=== PATIENT | male | born 1950 | race Caucasian/White ===

== ENCOUNTER 2016-07-15 00:24 | Emergency (ER) | payer OTHER ==
[2016-07-15] MEDS ORDERED: METHYLPREDNISOLONE SOD 125 MG/2 ML VIAL ONE (00:44)
[2016-07-15] MEDS ORDERED: IPRATROPIUM/ALBUTEROL 0.5/3 MG 3 ML AMPUL.NEB INHALATION ONE ×3 (00:44→02:23)
--- NOTE | 2016-07-15 00:50 | RADIOLOGY REPORT ---
HISTORY: Shortness of breath. COMPARISON: None. FINDINGS: 1 view of the chest obtained. There is patchy right basilar airspace disease. There is no pleural e ffusion. There is no pneumothorax. The cardiomediastinal silhouette is normal. There is no abnorma lity of the pulmonary vessels. There is no focal lung parenchymal nodule. There is no bone lesion. IMPRESSION: Patchy right basilar airspace disease may be secondary to atelectasis, aspiration or pneumonia. Recom mend a follow-up chest radiograph in 6-8 weeks to document resolution. Final Electronic Signature: This report was electronically signed by Iris Celis MD on 07/15/2016 12:48 AM. benny /
[2016-07-15] MEDS ORDERED: NICOTINE 21 MG PATCH ONE (01:19)
[2016-07-15] MEDS ORDERED: predniSONE 10 MG TABLET PO ONE (01:34)
--- NOTE | 2016-07-15 02:41 | ER PHYSICIAN DOCUMENTATION ---
Physician Documentation [facility] Name:Paresh Proctor Age:65 yrs Sex:Male :1950 Arrival Date:07/15/2016 Time:00:24 BedTrauma-C Private MD: Shola Dorantes Disposition: 07/15 01:18 Critical Care: not applicable. sc Disposition: 07/15/16 01:20 Discharged to Home/Self Care. Impression: COPD Exacerbation. - Condition is Fair. - Discharge Instructions: COPD FLARE. - Prescriptions for Prednisone 20 mg Oral Tablet - take 2 tablet by ORAL route once daily for 5 days; 10 tablet. - Medical Reconciliation form form. - Follow up: Private Physician; When: As needed; Reason: Worsening of condition. - Problem is an acute exacerbation. - Symptoms have improved. HPI: 01:10 This 65 yrs old Male presents to ER via Walk In with complaints of Breathing sc Difficulty. 01:10 The patient has shortness of breath with light activity. Onset: The symptom(s)/episode sc began/occurred today. Duration: The symptoms are continuous. The patient's shortness of breath is aggravated by smoking and coming to altitude, ran out of nicotine patches in [place], been smoking and came to visit family at altitude. Associated signs and symptoms: The patient has no apparent associated signs or symptoms. Historical: - Allergies: No known drug Allergies; - Home Meds: 1. Pt doesn't know medications - PMHx: Hypertension; COPD; - PSHx: None; - Tetanus: unknown. - Ebola Screening: : Patient negative for fever greater than or equal to 101.5 degrees Fahrenheit, and additional compatible Ebola Virus Disease symptoms. Patient denies exposure to infectious person. Patient denies travel to an Ebola-affected area in the 21 days before illness onset. No symptoms or risks identified at this time. . - Immunization history: Flu Vaccine < 1 year Pneumococcal vaccine is not up to date. - Social history: Smoking status: Patient uses tobacco products, heavy tobacco smoker. Patient/guardian denies using alcohol, street drugs. ROS: 01:11 Constitutional: Negative for fever, chills, and weight loss. sc Eyes: Negative for injury, pain, redness, and discharge. ENT: Negative for injury, pain, and discharge. Neck: Negative for injury, pain, and swelling. Cardiovascular: Negative for chest pain, palpitations, and edema. Abdomen/GI: Negative for abdominal pain, nausea, vomiting, diarrhea, and constipation. Back: Negative for injury and pain. MS/Extremity: Negative for injury and deformity. 01:11 Skin: Negative for injury, rash, and discoloration. sc 01:11 Respiratory: Positive for cough, with no reported sputum, shortness of breath, wheezing. Exam: Constitutional: This is a well developed, well nourished patient who is awake, alert, and in no acute distress. Head/Face: Normocephalic, atraumatic. Eyes: Pupils equal round and reactive to light, extra-ocular motions intact. Lids and lashes normal. Conjunctiva and sclera are non-icteric and not injected. Cornea within normal limits. Periorbital areas with no swelling, redness, or edema. ENT: Nares patent. No nasal discharge, no septal abnormalities noted. Tympanic membranes are normal and external auditory canals are clear. Oropharynx with no redness, swelling, or masses, exudates, or evidence of obstruction, uvula midline. Mucous membranes moist. Neck: Trachea midline, no thyromegaly or masses palpated, and no cervical lymphadenopathy. Supple, full range of motion without nuchal rigidity, or vertebral point tenderness. No meningismus. Chest/axilla: Normal chest wall appearance and motion. Nontender with no deformity. No lesions are appreciated. Cardiovascular: Regular rate and rhythm with a normal S1 and S2. No gallops, murmurs, or rubs. Normal PMI, no JVD. No pulse deficits. Abdomen/GI: Soft, non-tender, with normal bowel sounds. No distension or tympany. No guarding or rebound. No evidence of tenderness throughout. Back: No spinal tenderness. No costovertebral tenderness. Full range of motion. 01:12 Skin: Warm, dry with normal turgor. Normal color with no rashes, no lesions, and no sc evidence of cellulitis. 01:12 Cardiovascular: Rate: normal, Rhythm: regular. 01:12 Respiratory: mild respiratory distress is noted, Respirations: shallow respirations, that is mild, tachypnea, that is moderate, Breath sounds: decreased breath sounds, that are moderate, are scattered. Vital Signs: 00:33 BP 135 / 76 (auto/); mk2 00:36 Pulse 87 MON; Resp 20; Pulse Ox 97% ; mk2 00:36 BP 135 / 75; Pulse 89; Resp 22; Temp 97.9; Pulse Ox 84% on R/A; Weight 104.33 kg; 2 Height 5 ft. 10 in. (177.80 cm); Pain 0/10; 01:01 Pulse 88 MON; Resp 24; Pulse Ox 90% ; mk2 01:26 Pulse 81 MON; Resp 24; Pulse Ox 95% ; mk2 01:26 BP 128 / 66; Pulse 80; Resp 22; Pulse Ox 97% on R/A; Pain 0/10; mk2 01:30 BP 146 / 81 (auto/); mk2 01:31 Pulse 80 MON; Resp 22; Pulse Ox 97% ; mk2 02:00 BP 151 / 82 (auto/); mk2 02:01 Pulse 77 MON; Resp 21; Pulse Ox 89% ; mk2 02:31 Pulse 83 MON; Resp 19; Pulse Ox 97% ; 2 00:36 Body Mass Index 33.00 (104.33 kg, 177.80 cm) [facility] MDM: 00:32 Patient medically screened. va 01:18 Differential diagnosis: Chronic Obstructive Pulmonary Disease. Antibiotic sc administration: Not indicated. Data reviewed: vital signs, nurses notes, radiologic studies, and as a result, I will continue to observe the patient. Data interpreted: Pulse oximetry: on room air is 88 %. Plan: O2 by NC applied. Medication response: The patient's symptoms have improved. 01:21 ED course: patchy right basilar , rec follow up in six weeks for repeat cxr. va 07/15 00:44 Order name: CHEST; SING[place]IEW [id number] EDPR 07/15 00:51 Order name: CHEST; SING[place] VIEW [id number]; Complete Time: 01:21 EDMS 07/15 01:21 Interpretation: Abnormal. va 07/15 00:33 Order name: Iv Saline Lock; Complete Time: 00:38 sc Dispensed Medications: 00:38 Drug: Solu-MEDROL 125 mg; Route: IVP; Site: right antecubital; 2 01:28 Follow up: Response: Marked relief of symptoms 2 00:38 Drug: DuoNeb (Albuterol 2.5 mg, Atrovent 0.5 mg); 3 ml; Route: Nebulizer; 2 01:28 Follow up: Response: Marked relief of symptoms mk2 00:38 Drug: DuoNeb (Albuterol 2.5 mg, Atrovent 0.5 mg); 3 ml; Route: Nebulizer; mk2 01:28 Follow up: Response: Marked relief of symptoms mk2 01:27 Drug: DuoNeb (Albuterol 2.5 mg, Atrovent 0.5 mg); 3 ml; Route: Nebulizer; mk2 02:29 Follow up: Response: No adverse reaction mk2 01:28 Drug: Nicotine Patch 21 mg; Route: Transdermal; Site: affected area; mk2 02:39 Follow up: Response: No adverse reaction mk2 01:28 Drug: predniSONE 50 mg; Route: PO; mk2 01:29 Follow up: Response: No adverse reaction mk2 02:15 Drug: DuoNeb (Albuterol 2.5 mg, Atrovent 0.5 mg); 3 ml; Route: Nebulizer; mk2 02:29 Follow up: Response: Marked relief of symptoms 2 Signatures: Shola Herrera MD MD sc Kruger, Meg, RN RN mk2
--- NOTE | 2016-07-15 02:41 | ER NURSING DOCUMENTATION ---
Nurse's Notes [facility] Name:Paresh Proctor Age:65 yrs Sex:Male :1950 Arrival Date:07/15/2016 Time:00:24 BedTrauma-C Private MD: Diagnosis:COPD Exacerbation Presentation: 07/15 00:29 Presenting complaint: Patient states: I can't breathe since I got here today from [address] Transition of care: Home. 00:29 Acuity: PUSHPA 2 [facility] 00:29 Method Of Arrival: Walk In [facility] Triage Assessment: 00:36 General: Appears distressed, Behavior is cooperative. Pain: Denies pain. Neuro: No [facility] deficits noted. Cardiovascular: Rhythm is regular. Respiratory: Breath sounds are diminished bilaterally. Reports shortness of breath at rest air hunger since arriving in [place] this afternoon. Onset: The symptoms/episode began/occurred today, the patient has moderate shortness of breath. Derm: Skin is dusky. 01:06 Respiratory: Respiratory effort is labored, Respiratory pattern is symmetrical. [facility] Historical: - Allergies: No known drug Allergies; - Home Meds: 1. Pt doesn't know medications - PMHx: Hypertension; COPD; - PSHx: None; - Tetanus: unknown. - Ebola Screening: : Patient negative for fever greater than or equal to 101.5 degrees Fahrenheit, and additional compatible Ebola Virus Disease symptoms. Patient denies exposure to infectious person. Patient denies travel to an Ebola-affected area in the 21 days before illness onset. No symptoms or risks identified at this time. . - Immunization history: Flu Vaccine < 1 year Pneumococcal vaccine is not up to date. - Social history: Smoking status: Patient uses tobacco products, heavy tobacco smoker. Patient/guardian denies using alcohol, street drugs. Screenin:37 Infectious Disease Risk None. Abuse screen: Denies threats or abuse. Nutritional 2 screening: No deficits noted. Assessment: 00:37 See Triage Assessment done by same RN. 2 01:05 Reassessment: Patient states feeling better. peak flow 200 after treatment. PT states mk2 he is feeling better. . 02:39 Respiratory: Airway is patent. 2 Vital Signs: 00:33 BP 135 / 76 (auto/); mk2 00:36 Pulse 87 MON; Resp 20; Pulse Ox 97% ; mk2 00:36 BP 135 / 75; Pulse 89; Resp 22; Temp 97.9; Pulse Ox 84% on R/A; Weight 104.33 kg; mk2 Height 5 ft. 10 in. (177.80 cm); Pain 0/10; 01:01 Pulse 88 MON; Resp 24; Pulse Ox 90% ; mk2 01:26 Pulse 81 MON; Resp 24; Pulse Ox 95% ; mk2 01:26 BP 128 / 66; Pulse 80; Resp 22; Pulse Ox 97% on R/A; Pain 0/10; mk2 01:30 BP 146 / 81 (auto/); mk2 01:31 Pulse 80 MON; Resp 22; Pulse Ox 97% ; mk2 02:00 BP 151 / 82 (auto/); mk2 02:01 Pulse 77 MON; Resp 21; Pulse Ox 89% ; mk2 02:31 Pulse 83 MON; Resp 19; Pulse Ox 97% ; mk2 00:36 Body Mass Index 33.00 (104.33 kg, 177.80 cm) 2 ED Course: 00:25 Patient arrived in ED. ma1 00:29 Laila Antony, RN is Primary Nurse. mk2 00:30 Triage completed. mk2 00:32 Shola Herrera MD is Attending Physician. sc 00:37 Arm band placed on Bed in low position Call Light in Reach Gowned HOB Elevated Side mk2 rails up x1. 00:38 Inserted peripheral IV: 20 gauge in right antecubital area and blood collected. Oxygen mk2 Oxygen administration via nasal cannula @ 2L/min. 00:39 Valuables Remains with patient. telemetry monitor on. Pulse ox on. NIBP on. Verbal mk2 reassurance given. Head of bed elevated. 00:44 CHEST; SINGLE VIEW [id number] In Process Unspecified. EDMS Administered Medications: 00:38 Drug: Solu-MEDROL 125 mg; Route: IVP; Site: right antecubital; mk2 01:28 Follow up: Response: Marked relief of symptoms mk2 00:38 Drug: DuoNeb (Albuterol 2.5 mg, Atrovent 0.5 mg); 3 ml; Route: Nebulizer; mk2 01:28 Follow up: Response: Marked relief of symptoms mk2 00:38 Drug: DuoNeb (Albuterol 2.5 mg, Atrovent 0.5 mg); 3 ml; Route: Nebulizer; 2 01:28 Follow up: Response: Marked relief of symptoms mk2 01:27 Drug: DuoNeb (Albuterol 2.5 mg, Atrovent 0.5 mg); 3 ml; Route: Nebulizer; mk2 02:29 Follow up: Response: No adverse reaction mk2 01:28 Drug: Nicotine Patch 21 mg; Route: Transdermal; Site: affected area; mk2 02:39 Follow up: Response: No adverse reaction mk2 01:28 Drug: predniSONE 50 mg; Route: PO; mk2 01:29 Follow up: Response: No adverse reaction mk2 02:15 Drug: DuoNeb (Albuterol 2.5 mg, Atrovent 0.5 mg); 3 ml; Route: Nebulizer; mk2 02:29 Follow up: Response: Marked relief of symptoms 2 Outcome: 01:20 Discharge ordered by . ak 02:31 Discharge instructions given to patient, family, Instructed on discharge instructions, [facility] follow up and referral plans. medication usage, Prescriptions given X 1. 02:31 IV D/Martin 02:38 Discharged to home ambulatory. 2 02:38 Condition: improved 02:38 Discharge Assessment: Patient awake, alert and oriented x 3. No cognitive and/or functional deficits noted. Patient verbalized understanding of disposition instructions. 02:40 Patient left the ED. [facility] 07/16 14:01 Discharge F/U Call: Spoke with: patient. Have you filled your prescriptions? yes. Did lc your discharge instructions answer all of your questions? yes Overall Care on a scale of 1-10 with 10 being the best care, you rate our care as: Other comments: WENT BACK TO [place] AND HE FEELS BETTER, TRANSFERRED TO ADMITTING TO VERIFY INSURANCE INFO. Signatures: Dispatcher [employer] Yuko Gentile RN RN lc Chew, Scott, MD MD sc Abbott, Laura lea Kruger, Meg RN RN 2 Vicky Hernandez
== END 2016-07-15 02:41 | disposition home or self-care (01) ==
LOC: ER 00:24
DX: J44.1 Chronic obstructive pulmonary disease with (acute) exacerbation (principal); F17.210 Nicotine dependence, cigarettes, uncomplicated; I10 Essential (primary) hypertension; Z79.899 Other long term (current) drug therapy
CPT/HCPCS: 71010; 94640; 96374; 99285; J2930; J7512; J7620; S4990